=== PATIENT | male | born 1970 | race African-American/Black ===

== ENCOUNTER 2024-03-25 15:35 | Emergency (ER) | payer SELFPAY ==
[2024-03-25] VITALS (16 sets, daily range): BP systolic 143–170; BP diastolic 77–94; PULSE 61–80; RESP 13–28; TEMP 36.5–37.1; O2SAT 99–100
--- NOTE | ~2024-03-25 | CT_ITS ---
EXAMINATION: CT brain wo con DATE: 03/25/2024 16:43 INDICATION: Migraine. TECHNIQUE: Computed tomography (CT) of the head was performed without intravenous contrast. The mA wa s adjusted according to patient size. Iterative reconstruction technique was employed. The dose-lengt h product was 605.33 mGy-cm. COMPARISON: None FINDINGS: There is no intracranial hemorrhage, acute infarction, or abnormal intracranial mass lesion . The ventricles are normal in size. The orbits are normal. There is mucosal thickening in the parana tammy sinuses. The mastoid air cells are normal. IMPRESSION: 1. Normal brain. Reviewed, dictated and finalized at location A. LY CHAIN COORDINATOR IMPRESSION: 1. Normal brain.
--- NOTE | 2024-03-25 16:14 | ED_ITS ---
HPI - Recheck/Abnormal Lab/Rx General Chief Complaint: Recheck/Abnormal Lab/Rx Stated Complaint: htn Time Seen by Provider: 03/25/24 16:12 Source: patient Mode of arrival: ambulatory Limitations: no limitations History of Present Illness HPI narrative: This is a 54-year-old male who presents to the ED for chief complaint of left- sided headache over the past day or so. Reports he is at [facility] and they do not have any of his blood pressure medications. He is concerned that his blood pressure is high. States that this headache that is primarily on the left side is typical for his migraines. States he used to be on migraine medication but is unsure of what it is called. States that the light bothers him but he does not have any vision loss. Denies nausea, vomiting, abdominal pain, neck pain, neck stiffness, fevers, chills. Related Data Allergies Allergy/AdvReac Type Severity Reaction Status Date / Time No Known Allergies Allergy Verified 03/25/24 15:37 Review of Systems Review of Systems: All systems as dictated in HPI Exam Narrative: GENERAL: Well-appearing, well-nourished, and in no acute distress. HEAD: Normocephalic, atraumatic. EYES: PERRLA and EOMI. ENT: Nares clear, no rhinorrhea or epistaxis. Mucous membranes moist. Oropharynx without tonsillar hypertrophy exudate or other lesions. NECK: Supple. No adenopathy or masses. CHEST: No respiratory distress. Clear to auscultation. No wheezes rales or rhonchi HEART: Regular rate and rhythm. No murmur heard. Normal peripheral pulses. ABDOMEN: Soft, nontender, nondistended, normal active bowel sounds. MSK: Normal range of motion. No edema. SKIN: Warm, dry, no rash. NEURO: Alert and oriented x4. No focal deficits. PSYCH: Normal mood and affect. Course Vital Signs Vital signs: Vital Signs Temperature 97.7 F 03/25/24 15:45 Pulse Rate 74 03/25/24 15:45 Respiratory Rate 18 03/25/24 15:45 Blood Pressure 166/87 H 03/25/24 15:45 Pulse Oximetry 100 03/25/24 15:45 Oxygen Delivery Room Air 03/25/24 15:45 Temperature 97.7 F 03/25/24 15:45 Pulse Rate 65 03/25/24 18:00 Respiratory Rate 14 03/25/24 18:00 Blood Pressure 143/94 H 03/25/24 17:17 Pulse Oximetry 100 03/25/24 17:17 Oxygen Delivery Room Air 03/25/24 15:45 MDM - Recheck/Abnormal Lab/Rx MDM Narrative Medical decision making narrative: This is a 54-year-old male who presents to the ED for migraine headache. Vitals are showing mildly elevated blood pressure but otherwise normal. Exam remarkable for the above. No red flag signs for headache other than age. Patient was given headache cocktail ED with good relief. CT brain unremarkable. He is concerned about not having blood pressure medications at [facility]. Will prescribe low-dose amlodipine as I have no access to any previous medications and he is unsure with the doses are. Patient will be discharged in stable condition. Supportive measures discussed and return precautions given. Patient is understanding and agreeable with plan for discharge with PCP follow-up. Discharge Plan Discharge Clinical Impression: Migraine Patient Disposition: Home, Self-Care Condition: Stable Instructions: Antibiotic Form Additional Instructions: Exam and imaging today are reassuring. Please take amlodipine for blood pressure. Blood pressure needs to be managed by primary care long-term. The feel another headache, on, take Tylenol and ibuprofen immediately. If you have any new or worsening symptoms please return to the ER for further evaluation. Patient Language: Guamanian Prescriptions: New amlodipine 2.5 mg tablet 2.5 mg PO DAILY Qty: 30 0RF Follow-up/Referrals: Hugo Chinchilla MD [Primary Care Provider] - Time of Disposition: 17:34
[2024-03-25] MEDS: KETOROLAC 15 MG/ML VIAL (*BKC) IV PUSH (16:57)
[2024-03-25] MEDS: SODIUM CHLORIDE 0.9% IV 1,000 ML 999 ML IV CONT (16:57)
[2024-03-25] MEDS: PROCHLORPERAZINE EDISYLATE 10 MG/2 ML VIAL IV PUSH (16:58)
[2024-03-25] MEDS: diphenhydrAMINE HCl INJ 50 MG/ML VIAL 25 MG IV PUSH (16:58)
--- OUTSIDE RECORDS SUMMARY | 2024-03-29 01:55 | XMS_ITS ---
Author Organization [facility] Address [address] [place] [address] Care Team Providers Care Maintenance Millwright Name Role Phone PatsyYanira Primary Care Provider Allergies No Known Allergies REASON FOR VISIT on CRU Medications Medication SIG (Take, Route, Frequency, Duration) Notes Start Date End Date Status Sertraline HCl 25 MG 1 tablet Orally Onc e a day Active Topiramate 50 MG TAKE 1 TABLET BY MOUTH EVERY DAY Oral Once a day for 30 days on unit Active amLODIPine Besylate 10 MG 1 tablet Orall y Once a day for 30 days on unit Active Albuterol Sulfate HFA 108 (90 Base) MCG/ACT INHALE 2 PUFFS BY MOUTH EVERY 4 TO 6 HOURS NEEDED Inhalation for 17 Days Active Albuterol Sulfate HFA 108 (90 Base) MCG/ACT INHALE 2 PUFFS BY MOUTH EVERY 4 TO 6 HOURS NEEDED Inhalation for 17 Days Not-Taking Multivitamin - 1 tablet Orally Once a day Active Albuterol Sulfate HFA 108 (90 Base) MCG/ACT 2 puff as needed Inhalation every 4 hrs As needed Active Diclofenac Sodium 1 % as directed Externally 4 times daily As needed Active hydrOXYzine Pamoate 25 MG 1-2 capsules Orally every 4 hours As needed Active Chlorhexidine Gluconate 0.12 % 15 mL swish for 30 seconds, then spit. Do not swallow. Mouth/Throat Twice a day for 30 days on unit 03/28/2024 Active Symbicort 160-4.5 MCG/ACT PLEASE SEE ATT ACHED FOR DETAILED DIRECTIONS Inhalation daily for 30 days on unit Active Social History Tobacco Use: Social History Observation Description Date Details (start date - stop date) Current Smoker NA - NA Tobacco Control (Standard) Question Answer Notes Tobacco use: Current every day smoker Additional Findings: Tobacco user Heavy cigarett e smoker (20-39 cigs/day) Problems Problem Type SNOMED Code ICD Code Onset Dates Problem Status W/U Status Risk Notes Problem Tobacco user (751480780) Nicotine dependence, unspecified, uncomplicated (F17.200) Active confirmed Problem Hypertension (06365026) Hypertension (I10) Active confirmed Problem Asthma (240834607) Asthma (J45.909) Active confirmed Problem migraine (disorder) (04023889) Migraines (G43.909) Active confirmed Vital Signs Weight 162 lbs 03/28/2024 Height 69 in 03/28/2024 BMI 23.92 kg/m2 03/28/2024 Blood pressure systolic 162 mm Hg 03/28/20 24 Blood pressure diastolic 100 mm Hg 024 Heart Rate 72 /min 03/28/2024 Oximetry 98 % 03/28/2024 Respiratory Rate 16 /min 03/28/2024 Encounters Encounter Location Date Provider Diagnosis [place] [address] [facility] [place] [address] 03/28/2024 Yanira Garner Nicotine dependence, unspecified, uncomplicated F17.200 ; Adult general medical exam Z00.00 ; Hypertension I10 ; Dental caries K02.9 ; Low back pain at multiple sites M54.50 ; Asthma J45.909 and Migraines G43.909 Assessments Encounter Date Diagnosis (ICD Code) Assessment Notes Treatment Notes Treatment Clinical Notes Section Notes 03/28/2024 Nicotine dependence, unspecified, uncomplicated (ICD-10 - F17.200) 03/28/2024 Adult general medical exam (ICD-10 - Z00.00) 03/28/2024 Hypertension (ICD-10 - I10) 03/28/2024 Dental caries (ICD-10 - K02.9) 03/28/2024 Low back pain at multiple sites (ICD-10 - M54.50) 03/28/2024 Asthma (ICD-10 - J45.909) 03/28/2024 Migraines (ICD-10 - G43.909) 03/28/2024 Other Continue treatment as recommended by [facility] staff. Encouraged patient to obtain routine medical care with patient's own primary care provider or establish as a patient at [facility] if no current primary care provider. Plan Of Treatment Medication Medication Name Sig Start Date Stop Date Notes Topiramate 50 MG TAKE 1 TABLET BY BETO TH EVERY DAY Oral Once a day for 30 days on unit amLODIPine Besylate 10 MG 1 tablet Orall y Once a day for 30 days on unit Fluticasone Furoate-Vilanter ol 100-25 MCG/ACT 1 puff Inhalation Once a day for 30 days Chlorhexidine Gluconate 0.12 % 15 mL swi sh for 30 seconds, then spit. Do not swallow. Mouth/Throat Twice a day for 30 days 03/28/2024 on unit Symbicort 160-4.5 MCG/ACT PLEASE SEE ATT ACHED FOR DETAILED DIRECTIONS Inhalation daily for 30 days on unit Treatment Notes Assessment Notes Other Continue treatment as recommended by [place] staff. Encouraged patient to obtain routine medical care with patient's own primary care provider or establish as a patient at [facility] if no current primary care provider. Future Test Test Name Order Date QuantiFERON-TB Gold Plus 03/28/2024 Next Appt Details Follow Up: prn, Reason: Provider Name:Jacqueline Bowers , 03/29/2024 01:00:00 PM, [address] [facility], [place], [address], Progress Notes * Kev PORRAS ADOB:1970 (54 yo M)Acc No.[id number]:03/28/2024 Patient:?Kev PORRAS Provider:?Yanira Garner APRN :1970???Age:54 Y???Sex:Male Jarrett e:03/28/2024 Address:[facility] [place], [address] Check In:08:32 AM LAB SCIENTIST Subjective: * Chief Complaints: * ???on CRU * HPI: ???Summary:?Presents for physical as patient is admitted to Residential Unit at [place]. Arrived on: 03/24/24 Use of: Crack- cocaine Last use: 03/15/24 Via: smoke Previous treatment: various treatment (>15 years), for last 28 years.? Withdrawals symptoms: Denies Medical History: HTN, migraines PCP: Dr. Fournier in [place] Psych Provider: Denies Current medical concerns: HTN, low back pain reports having a spinal surgeon, reports hx of radiation bilaterally.? Denies SI/HI. Elevated BP today, reports going to [facility] over the weekend for HTN, was re-started on Amlodipine 2.5mg. Pr. reports previosuly taking Amlodipine along with another antihypertensive, unable to recall names.? WIll call[facility] in [place], [place] to obtain medication records. Unable to recall in external medication records.? Pt. requesting dental referral- advised that a referral is not necessary,pt. to schedule at D/C. Will send Rx for mouth rinse as pt. reports pain with brushing.? Pt. requesting to re-start the Symbicort- will stop FLuticasone. ???Preventative Health and Wellness follow-up:?Action Plans for Clinical Quality Measures:?Colorectal Cancer Screening:?Discussed need for colorectal cancer screening. Patient declined.,?HIV Screening:?Discussed need for HIV screening. Patient declined..?. ???CSSRS Interpretation and Follow Up Plan:?CSSRS Interpretation and Follow Up Plan. ?CSSRS Interpretation and Follow Up Plan?CSSRS Screen documented using SF?Yes,?Moderate or High risk requires selection of a follow up plan?CSSRS No/Low: intervention not needed at this time.?Depression Screening:?PHQ-9?Little interest or pleasure in doing things?Not at all,?Feeling down, depressed, or hopeless?Not at all,?Trouble falling or staying asleep, or sleeping too much?Several days,?Feeling tired or having little energy?Not at all,?Poor appetite or overeating?Not at all,?Feeling bad about yourself or that you are a failure, or have let yourself or your family down?Not at all,?Trouble concentrating on things, such as reading the newspaper or watching television?More than half the days,?Moving or speaking so slowly that other people could have noticed; or the opposite, being so fidgety or restless that you have been moving around a lot more than usual?Not at all,?Thoughts that you would be better off or of hurting yourself in some way?Not at all,?Total Score?3,?Interpretation?Minimal Depression.?Intervention?Depression Screening Findings?Negative.?Interim History:?Emergency room visit?No.?Was hospitalized?No.?Screening:?[place] Suicide Severity Rating Scale (LF)?Do you want to initiate with?Screener form,?1. Wish to be : Have you wished you were or wished you could go to sleep and not wake up??No,?2. Suicidal Thoughts: Have you actually had any thoughts of killing yourself??No,?6. Suicide Behaviour: Have you ever done anything,started to do anything, or prepared to end your life??No,?Interpretation:?Low Risk.? * ROS:?Psych ROS:?Constitutional?Denies.?Eyes?Denies.?Ears/Nose/Mouth/Throat?Denies.?Respirat ory?Denies.?Cardiova scular?Denies.?GI?Denies.??Denies.?Musculoskeletal?Denies.?Neurological?Denies . Integ umentary?Denies.?Hematological/Lymphatic?Denies.?Basic ROS:?Denies?Seizures.?Denies?Suicidal Thoughts.? * Medical History:? * Surgical History:?appendecto my testicular surgery * Hospitalization/Major Diagno stic Procedure:?asthma 2022 * Family History:?Father: dece ased.?Mother: .? Mom lung CA dad Had HTN and diabetes. * Social History:?Primary Social History:?Living Arrangement?Living Arrangement:?Independent Living,?Is this a supportive environment??No.?Alcohol Use?Alcohol Use Frequency:?Monthly or less.?Illicit Substance Usage?Illicit Substance Usage:?Yes,?Substance Used:?Crack last use 03/16.?Employment Status?Employment Status:?Unemployed.?Tobacco Use:?Tobacco Control (Standard)?Tobacco use:?Current every day smoker,?Additional Findings: Tobacco user?Heavy cigarette smoker (20-39 cigs/day).?Miscellaneous:?Method of learning?Preferred method of learning:?Discussion.? * Medications:?TakingamLODIPin e Besylate 2.5 MG Tablet 1 tablet Orally Once a day hydrOXYzine Pamoate 25 MG Capsule 1-2 capsules Orally every 4 hours As neededMultivitamin - Tablet 1 tablet Orally Once a day Albuterol Sulfate HFA 108 (90 Base) MCG/ACT Aerosol Solution 2 puff as needed Inhalation every 4 hrs As neededDiclofenac Sodium 1 % Gel as directed Externally 4 times daily As neededFluticasone Furoate-Vilanterol 100-25 MCG/ACT Aerosol Powder Breath Activated 1 puff Inhalation Once a day Sertraline HCl 25 MG Tablet 1 tablet Orally Once a day Topiramate 50 MG Tablet TAKE 1 TABLET BY MOUTH EVERY DAY Oral Symbicort 160-4.5 MCG/ACT Aerosol PLEASE SEE ATTACHED FOR DETAILED DIRECTIONS Inhalation Albuterol Sulfate HFA 108 (90 Base) MCG/ACT Aerosol Solution INHALE 2 PUFFS BY MOUTH EVERY 4 TO 6 HOURS NEEDED Inhalation Taking amLODIPine Besylate 2.5 MG Tablet 1 tablet Orally Once a day Taking hydrOXYzine Pamoate 25 MG Capsule 1-2 capsules Orally every 4 hours As neededTaking Multivitamin - Tablet 1 tablet Orally Once a day Taking Albuterol Sulfate HFA 108 (90 Base) MCG/ACT Aerosol Solution 2 puff as needed Inhalation every 4 hrs As neededTaking Diclofenac Sodium 1 % Gel as directed Externally 4 times daily As neededTaking Fluticasone Furoate-Vilanterol 100-25 MCG/ACT Aerosol Powder Breath Activated 1 puff Inhalation Once a day Taking Sertraline HCl 25 MG Tablet 1 tablet Orally Once a day Taking Topiramate 50 MG Tablet TAKE 1 TABLET BY MOUTH EVERY DAY Oral Taking Symbicort 160-4.5 MCG/ACT Aerosol PLEASE SEE ATTACHED FOR DETAILED DIRECTIONS Inhalation Taking Albuterol Sulfate HFA 108 (90 Base) MCG/ACT Aerosol Solution INHALE 2 PUFFS BY MOUTH EVERY 4 TO 6 HOURS NEEDED Inhalation Not-TakingAlbuterol Sulfate HFA 108 (90 Base) MCG/ACT Aerosol Solution INHALE 2 PUFFS BY MOUTH EVERY 4 TO 6 HOURS NEEDED Inhalation Not-Taking Albuterol Sulfate HFA 108 (90 Base) MCG/ACT Aerosol Solution INHALE 2 PUFFS BY MOUTH EVERY 4 TO 6 HOURS NEEDED Inhalation * Allergies:?N.K.D.A.no[Allerg ies Verified] Objective: * Vitals:?Initials: hp, Wt:162 , Ht:69, BMI:23.92, BP:162/100, 2nd BP read:162/100, HR:72, Oxygen sat %:98, RR:16, Pain scale:3. * Examination: ???Activity Permissions and Medication Self Administration: ?Activity Level & Medication Self-Administration Permissions?.?. ???General Examination: ?GENERAL APPEARANCE:?alert, in no acute distress.?HEAD:?normocephalic, atraumatic.?EYES:?BOTH EYES, sclera anicteric, pupils equal, round, reactive to light and accommodation , extraocular movement intact (EOMI).?EARS?BOTH EARS, normal.?NOSE:?nares patent.?ORAL CAVITY:?mucosa moist, missing teeth, carious teeth.?THROAT:?pharynx normal.?NECK/THYROID:?neck supple , no thyromegaly.?SKIN:?warm and dry, no rashes, no suspicious lesions.?HEART:?regular rate and rhythm, S1, S2 normal, no S3, S4, no murmurs, rubs, gallops.?LUNGS:?respirations regular and easy, clear to auscultation bilaterally, no wheezes, rales, rhonchi, clear anteriorly and posteriorly, good air movement.?ABDOMEN:?bowel sounds present, soft, nontender, nondistended, no masses palpable, no organomegaly .?EXTREMITIES:?no edema.?PERIPHERAL PULSES:?2+ radial.?NEUROLOGIC:?nonfocal, gait normal.?PSYCH:?appropriate affect.? Assessment: * Assessment: 1.?Nicotine dependence, unsp ecified, uncomplicated - F17.200???2.?Adult general medical exam - Z00.00 (Primary)???3.?Hypertension - I10???4.?Dental caries - K02.9???5.?Low back pain at multiple sites - M54.50? ?6.?Asthma - J45.909???7.?Migraines - G43.909??? Plan: * Treatment: 2.?Dental caries? Start Chlorhexidine Gluconate Solution, 0.12 %, 15 mL swish for 30 seconds, then spit. Do not swallow., Mouth/Throat, Twice a day, 30 days, 900, Refills 1, Notes to Pharmacist: on unit.?? 3.?Asthma? Refill Symbicort Aerosol, 160-4.5 MCG/ACT, PLEASE SEE ATTACHED FOR DETAILED DIRECTIONS, Inhalation, daily, 30 days, 1, Refills 0, Notes to Pharmacist: on unit;?Stop Fluticasone Furoate-Vilanterol Aerosol Powder Breath Activated, 100-25 MCG/ACT, 1 puff, Inhalation, Once a day, 30 days, 1.?? 4.?Migraines? Refill Topiramate Tablet, 50 MG, TAKE 1 TABLET BY MOUTH EVERY DAY, Oral, Once a day, 30 days, 30, Refills 0, Notes to Pharmacist: on unit.?? 5.?Others? Refill amLODIPine Besylate Tablet, 10 MG, 1 tablet, Orally, Once a day, 30 days, 30 Tablet, Refills 0, Notes to Pharmacist: on unit.?? Notes:Continue treatment as recommended by [place] staff.Encouraged patient to obtain routine medical care with patient's own primary care provider or establish as a patient at [facility] if no current primary care provider.?? * Recommended Wellness and Pre vention Guidelines: * ?Status ?Alert ?Last Done ?Next Due ?Action Taken ?NONCOMPLIANT ?Alcohol use screening ?- ? ?- ?NONCOMPLIANT ?Body Mass Index ?- ?03/28/2024 ?- ?NONCOMPLIANT ?Cholesterol screen (genl pop) ?- ?1 05/29/2023 ?- ?NONCOMPLIANT ?Colorectal cancer screening ?- ? ?- ?NONCOMPLIANT ?Depression screening ?- ?03/28/2024 ?- ?NONCOMPLIANT ?HIV screening ?- ?03/28/2024 ?- ?NONCOMPLIANT ?Influenza vaccine (over 50) ?- ? ?- ?NONCOMPLIANT ?Smoking status ?- ?03/28/2024 ?- * Procedure Codes:?33521 BEHAV CHNG SMOKING 3-10 MIN * Preventive Medicine:? ??Counseling:?SMOKING:?Patient counselled on the dangers of tobacco use and urged to quit.?..? * Follow Up:?prn * * SCIENTIST Sign off status: Completed true * Provider:?Yanira Garner APRN Date:?1 05/29/2023 Generated for Flaco da silva/Dominik/eTransmitting on:?03/29/2024 01:54 AM LAB SCIENTIST History and Physical Notes * HPI (History of Present Illness) Category Sub-Category Detail Notes Category Not es Interim History Was hospitalized No Emergency room visit No Depression Screening PHQ-9 Little inte rest or pleasure in doing things: Not at all Feeling down, depressed, or hopeless: No t at all Trouble falling or staying asleep, or sl eeping too much: Several days Feeling tired or having little energy: N ot at all Poor appetite or overeating: Not at all Feeling bad about yourself o r that you are a failure, or have let yourself or your family down: Not at all Trouble concentrating on thi ngs, such as reading the newspaper or watching television: More than half the days Moving or speaking so slowly that other people could have noticed; or the opposite, being so fidgety or restless that you have been moving around a lot more than usual: Not at all Thoughts that you would be b damián off or of hurting yourself in some way: Not at all Total Score: 3 Interpretation: Minimal Depression Intervention Depression Screening Findings: N egative Summary Presents for physical as patient is admitted to Residential Unit at [place]. Arrived on: 03/24/24 Use of: Crack- cocaine Last use: 03/15/24 Via: smoke Previous treatment: various treatment (>15 years), for last 28 years. Withdrawals symptoms: Denies Medical History: HTN, migraines PCP: Dr. Fournier in [place] Psych Provider: Denies Current medical concerns: HTN, low back pain reports having a spinal surgeon, reports hx of radiation bilaterally. Denies SI/HI. Elevated BP today, reports going to [facility] over the weekend for HTN, was re-started on Amlodipine 2.5mg. Pr. reports previosuly taking Amlodipine along with another antihypertensive, unable to recall names. WIll call [facility] in [place], [place] to obtain medication records. Unable to recall in external medication records. Pt. requesting dental referral- advised that a referral is not necessary,pt. to schedule at D/C. Will send Rx for mouth rinse as pt. reports pain with brushing. Pt. requesting to re-start the Symbicort- will stop FLuticasone Screening [place] Suicide Severity Rating Scale (LF) Do you want to initiate with: Screener form ?1. Wish to be : Have yo u wished you were or wished you could go to sleep and not wake up?: No ?2. Suicidal Thoughts: Have you actually had any thoughts of killing yourself?: No ?6. Suicide Behaviour: Have you ever done anything,started to do anything, or prepared to end your life?: No ?Interpretation:: Low Risk CSSRS Interpretation and Follow Up Plan CSSRS Interpretation and Follow Up Plan CSSRS Screen documented using SF: Yes Moderate or High risk requir es selection of a follow up plan: CSSRS No/Low: intervention not needed at this time Preventative Health and Wellness follow-up Action Plans for Clinical Quality Measures: Colorectal Cancer Screening:: Discussed need for colorectal cancer screening. Patient declined. . HIV Screening:: Discussed need for HIV s creening. Patient declined. Examination Category Sub-Category Detail Notes Category Not es General Examination GENERAL APPEARANCE: alert, in no a cute distress HEAD: normocephalic, atrau matic EYES: BOTH EYES, sclera an icteric, pupils equal, round, reactive to light and accommodation , extraocular movement intact (EOMI) EARS BOTH EARS, normal NOSE: nares patent THROAT: pharynx normal NECK/THYROID: neck supple , no thy romegaly HEART: regular rate and rhy thm, S1, S2 normal, no S3, S4, no murmurs, rubs, gallops LUNGS: respirations regular and easy, clear to auscultation bilaterally, no wheezes, rales, rhonchi, clear anteriorly and posteriorly, good air movement ABDOMEN: bowel sounds present , soft, nontender, nondistended, no masses palpable, no organomegaly NEUROLOGIC: nonfocal, gait niki l SKIN: warm and dry, no hero hes, no suspicious lesions EXTREMITIES: no edema PERIPHERAL PULSES: 2+ radial PSYCH: appropriate affect ORAL CAVITY: mucosa moist, missin g teeth, carious teeth Activity Permissions and Medication Self Administration Activity Level & Medication Self-Administration Permissions Activity Level Permitted:: The patient/client may fully take part in physical fitness programming including aerobic, muscular strength, and flexibility training without restriction. . Medication Self-Administrati on Permissions:: Medications may be self- administered by the patient/client under the supervision of approved staff or administered by nursing staff.
--- OUTSIDE RECORDS SUMMARY | 2024-03-29 01:55 | XMS_ITS | Patient Health Record ---
Author Organization [facility] Address [address] [place] [address] Care Team Providers Care Feed In Worker Name Role Phone Yanira Garner Primary Care Provider Jacqueline Bowers Unavailable [phone] Allergies No Known Allergies Reason For Referral No Information Medications Medication SIG (Take, Route, Frequency, Duration) Notes Start Date End Date Status Multivitamin - 1 tablet Orally Once a day Active Albuterol Sulfate HFA 108 (90 Base) MCG/ACT 2 puff as needed Inhalation every 4 hrs As needed Active Diclofenac Sodium 1 % as directed Externally 4 times daily As needed Active Sertraline HCl 25 MG 1 tablet Orally [...] HOURS NEEDED Inhalation for 17 Days Active Chlorhexidine Gluconate 0.12 % 15 mL swish for 30 seconds, then spit. Do not swallow. Mouth/Throat Twice a day for 30 days on unit 03/28/2024 Active Albuterol Sulfate HFA 108 (90 Base) MCG/ACT INHALE 2 PUFFS BY MOUTH EVERY 4 TO 6 HOURS NEEDED Inhalation for 17 Days Not-Taking Symbicort 160-4.5 MCG/ACT PLEASE SEE ATT ACHED FOR DETAILED DIRECTIONS Inhalation daily for 30 days on unit Active hydrOXYzine Pamoate 25 MG 1-2 capsules Orally every 4 hours As needed Active Social History Tobacco Use: Social History Observation Description Date Details (start date - stop date) Current Smoker NA - NA Tobacco Control (Standard) Question Answer Notes Tobacco use: Current every day smoker Additional Findings: Tobacco user Heavy cigarett e smoker (20-39 cigs/day) Problems Problem Type SNOMED Code ICD Code Onset Dates Problem Status W/U Status Risk Notes Problem Tobacco user (484435982) Nicotine dependence, unspecified, uncomplicated (F17.200) Active confirmed Problem Hypertension (41122658) Hypertension (I10) Active confirmed Problem Asthma (806535690) Asthma (J45.909) Active confirmed Problem migraine (disorder) (80248578) Migraines (G43.909) Active confirmed Vital Signs Heart Rate 72 /min 03/28/2024 Respiratory Rate 16 /min 03/28/2024 Oximetry 98 % 03/28/2024 Blood pressure diastolic 100 mm Hg 03/28/2024 Height 69 in 03/28/2024 Blood pressure systolic 162 mm Hg 03/28/2024 Weight 162 lbs 03/28/2024 BMI 23.92 kg/m2 03/28/2024 Encounters Encounter Location Date Provider Diagnosis [address] [place] [address] 03/28/2024 Yanira Garner Nicotine dependence, unspecified, uncomplicated [...] 03/28/2024 Other Continue treatment as recommended by [facility] staff. Encouraged patient to obtain routine medical care with patient's own primary care provider or establish as a patient at [facility] if no current primary care provider. Plan Of Treatment Future Test Test Name Order Date QuantiFERON-TB Gold Plus 03/28/2024 Next Appt Details Provider Name:Jacqueline Bowers , 03/29/2024 01:00:00 PM, [address] [facility], [place], [address], Medical (General) History Surgical History Surgery Date(Month/Year) appendectomy testicular surgery Hospitalization History Reason Date(Month/Year) asthma 2022
== END 2024-03-25 19:01 | disposition home or self-care (01) ==
PROVIDERS: Emergency Provider Physician Assistant; PCP Internal Medicine
DX: G43.909 Migraine, unspecified, not intractable, without status migrainosus (principal); I10 Essential (primary) hypertension
CPT/HCPCS: 70450; 96361; 96374; 96375; 99284; J0780; J1200; J1885; J7030

== ENCOUNTER 2024-04-08 09:23 | Emergency (ER) | payer MEDICAID, SELFPAY ==
[2024-04-08 09:57] VITALS: BP 143/89; PULSE 78; RESP 20; TEMP 37.2; O2SAT 100
--- NOTE | 2024-04-08 10:04 | ED.DENTAL ---
HPI - Dental/Oral General Chief complaint: Dental/Oral Stated complaint: Tooth abscess, sore throat Time Seen by Provider: 04/08/24 10:04 Source: patient Mode of arrival: ambulatory Limitations: no limitations History of Present Illness HPI Narrative: This is a 54-year-old male who presents to the ED for chief complaint of left-sided dental pain over the past several days. Reports it is worse on the left lower side. Feels that he may need antibiotics for this because he has had dental infections in the past. He is currently at the [facility] [place] has not been able to see dentist. Patient reports that he has chronic asthma and has been having some increased wheezing. He has been taking his albuterol and Symbicort but is requesting a steroid pack due to his tightness. Denies fevers, chills, shortness of breath, nausea, vomiting, trismus, drooling. Related Data Allergies Allergy/AdvReac Type Severity Reaction Status Date / Time No Known Allergies Allergy Verified 04/08/24 10:00 Review of Systems Review of Systems: All systems as dictated in HPI Exam Narrative: GENERAL: Well-appearing, well-nourished, and in no acute distress. HEAD: Normocephalic, atraumatic. EYES: PERRLA and EOMI. ENT: Poor dentition throughout with multiple missing teeth. Nares clear, no rhinorrhea or epistaxis. Mucous membranes moist. Oropharynx without tonsillar hypertrophy exudate or other lesions. NECK: Supple. No adenopathy or masses. CHEST: No respiratory distress. Clear to auscultation. No wheezes rales or rhonchi HEART: Regular rate and rhythm. No murmur heard. Normal peripheral pulses. ABDOMEN: Soft, nontender, nondistended, normal active bowel sounds. MSK: Normal range of motion. No edema. SKIN: Warm, dry, no rash. NEURO: Alert and oriented x4. No focal deficits. PSYCH: Normal mood and affect. Course Vital Signs Vital signs: Vital Signs Temperature 98.9 F 04/08/24 09:57 Pulse Rate 78 04/08/24 09:57 Respiratory Rate 20 04/08/24 09:57 Blood Pressure 143/89 H 04/08/24 09:57 Pulse Oximetry 100 04/08/24 09:57 Oxygen Delivery Room Air 04/08/24 09:57 Temperature 98.9 F 04/08/24 09:57 Pulse Rate 78 04/08/24 09:57 Respiratory Rate 20 04/08/24 09:57 Blood Pressure 143/89 H 04/08/24 09:57 Pulse Oximetry 100 04/08/24 09:57 Oxygen Delivery Room Air 04/08/24 09:57 MDM - Dental/Oral MDM Narrative Medical decision making narrative: This is a 54-year-old male who is presenting for dental pain and increased wheezing with asthma. Vitals are normal. Respiratory exam is intact. He does have mild wheezes. Dentition is diffusely poor. Multiple caries and missing teeth noted. No trismus or drooling or signs of deep space infection. Patient will be given Rx for Augmentin for possible dental infection. Medrol Dosepak given for tightness with wheezing. He already has prescriptions for Symbicort And albuterol. Pt will be discharged in stable condition. Return precautions given and supportive measures discussed. Pt is understanding and agreeable with plan for discharge and follow-up with PCP. Discharge Plan Discharge Clinical Impression: Dental caries Patient Disposition: Home, Self-Care Condition: Stable Instructions: Antibiotic Form Additional Instructions: Your exam today shows dental decay. This needs to be treated definitively by dentist. Please take antibiotics as prescribed for this. Use regular Tylenol and ibuprofen for pain control. Take Medrol Dosepak for increased wheezing with asthma. If you have any new or worsening symptoms please return to the ER for further evaluation. Patient Language: Turkish Prescriptions: New methylprednisolone [Medrol (Sylvester)] 4 mg tablets,dose pack See Rx Instructions .ROUTE .COMPLEX Qty: 21 0RF Rx Instructions: for 6 days amoxicillin-pot clavulanate 875-125 mg tablet 1 tablet PO Q12H Qty: 14 0RF No Action amlodipine 2.5 mg tablet 2.5 mg PO DAILY Qty: 30 0RF amlodipine 2.5 mg tablet 2.5 mg PO DAILY Qty: 10 0RF Follow-up/Referrals: Hugo Chinchilla MD [Primary Care Provider] - Stand Alone Forms: Work/School Release IP Time of Disposition: 10:07
== END 2024-04-08 10:17 | disposition home or self-care (01) ==
LOC: ANHED 10:12
PROVIDERS: Emergency Provider Physician Assistant; PCP Internal Medicine
DX: K02.9 Dental caries, unspecified (principal); J45.909 Unspecified asthma, uncomplicated
CPT/HCPCS: 99283

== ENCOUNTER 2024-05-06 09:44 | Emergency (ER) | payer MEDICAID, SELFPAY ==
--- NOTE | ~2024-05-06 | XR_ITS ---
EXAMINATION: XR chest 2V DATE: 05/06/2024 10:42 INDICATION: Shortness of breath and cough. TECHNIQUE: Frontal and lateral views of the chest were obtained. COMPARISON: None. FINDINGS: A calcified right lung nodule is consistent with old granulomatous disease. There is no pne umonia, pleural effusion, or pneumothorax. The heart size is normal. IMPRESSION: 1. No acute cardiopulmonary disease. Reviewed, dictated and finalized at location B. BUSINESS PARTNER CONSULTANT
[2024-05-06 09:51] VITALS: BP 148/79; PULSE 102; RESP 30; TEMP 38.7; O2SAT 100
--- NOTE | 2024-05-06 09:56 | ECG_ITS ---
Test Date: 2024-05-06 09:58:52 Measurements Intervals [place] Rate: 112 P: 74 [place]: 129 QRS: 57 QRSD: 90 T: 60 QT: 306 QTc: 419 Interpretive Statements SINUS TACHYCARDIA POSSIBLE LEFT ATRIAL ENLARGEMENT [-0.1mV P-WAVE IN V1/V2] NONSPECIFIC T-WAVE ABNORMALITY ABNORMAL RHYTHM ECG No previous ECG available for comparison Electronically Signed On 05-06-2024 11:58:20 ORTHOPEDICS TEACHER by Melanie Watson
[2024-05-06 10:09] LABS: Basophils Absolute Auto 0.1 K/mm3 (0.0-0.1); Basophils Percent Auto 0.7 % (0.2-1.2); Eosinophils Absolute Auto 0.1 K/mm3 (0-0.3); Eosinophils Percent Auto 0.8 % (0-4.4); Hematocrit 43.3 % (42.0-52.0); Hemoglobin 13.9 g/dL (14.0-18.0); Immature Granulocyte Absolute 0.36 K/mm3 (0.00-0.031); Immature Granulocyte Percent A 3.4 % (0-0.5); Immature Platelet Fraction Pct 3.7 % (0.9-11.2); Lymphocytes Percent Auto 12.2 % (18.3-44.2); Mean Corpuscular HGB Conc 32.1 g/dl (32-36); Mean Corpuscular Hemoglobin 27.7 pg (26-34); Mean Corpuscular Volume 86.3 fl (80-100); Mean Platelet Volume 11.3 fl (7.4-10.4); Monocytes Absolute Auto 1.9 K/mm3 (0.1-0.6); Monocytes Percent Auto 17.6 % (2.6-8.5); Neutrophils Percent Auto 65.3 % (45.5-73.1); Platelet Count Result 171 k/mm3 (150-375); Red Blood Count 5.02 M/mm3 (4.6-6.20); White Blood Count 10.7 K/mm3 (4.5-10.0)
[2024-05-06] MEDS: KETOROLAC 30 MG/ML VIAL (*BKC) IV PUSH (11:15)
[2024-05-06] MEDS: SODIUM CHLORIDE 0.9% IV 1,000 ML 999 ML IV CONT (11:15)
[2024-05-06 11:16] VITALS: BP 133/77; PULSE 94; RESP 19; O2SAT 97
[2024-05-06 12:05] LABS: Influenza A QL RT-PCR Positive (Negative); Influenza B QL RT-PCR Negative (Negative); RSV RNA, RT-PCR Negative (Negative); SARS-CoV-2 RNA PCR Negative (Negative)
--- NOTE | 2024-05-06 12:15 | ED.GENADULT ---
HPI - General Adult General Chief complaint: Shortness of Breath/Dyspnea Stated complaint: SOB Time Seen by Provider: 05/06/24 09:48 Source: patient Mode of arrival: EMS Limitations: no limitations History of Present Illness HPI narrative: 54-year-old was brought in by EMS from [facility] with the complaints of body aches, fever since last night has with EMS patient was exposed to COVID yesterday. He denies any nausea, vomiting or abdominal pain. Onset (ago): day(s) (1) Severity: moderate Related Data Allergies Allergy/AdvReac Type Severity Reaction Status Date / Time No Known Allergies Allergy Verified 05/06/24 10:01 Review of Systems Review of Systems: All systems reviewed & are unremarkable except as noted in HPI and below Constitutional: Constitutional: Reports no additional constitutional complaints Eyes: Eyes: Reports no additional eye complaints ENT: Reports system reviewed and no additional complaints, except as documented Cardiovascular: Cardiovascular: Reports no additional cardiovascular complaints Respiratory: Respiratory: Reports as per HPI Musculoskeletal: Musculoskeletal: Reports no additional musculoskeletal complaints Exam Narrative: GENERAL: Well-appearing, well-nourished, and in no acute distress. HEAD: Normocephalic, atraumatic. EYES: PERRLA and EOMI. ENT: Nares clear, no rhinorrhea or epistaxis. Mucous membranes moist. NECK: Supple. CHEST: Clear to auscultation. No respiratory distress. HEART: Regular rate and rhythm. No murmur heard. Normal peripheral pulses. ABDOMEN: Soft, nontender, nondistended, normal active bowel sounds. EXTREMITIES: Normal range of motion. No edema. SKIN: Warm, dry, no rash. NEURO: No focal deficits. Alert and oriented x3. PSYCH: Normal mood and affect. Course Course Emergency Course: Patient was given IV fluids, is lying comfortably on the bed informed him about his lab work and x-ray findings. Advised him to take medication as prescribed. Tylenol ibuprofen for body aches and fever. Vital Signs Vital signs: Vital Signs Temperature 38.7 C H 05/06/24 09:51 Pulse Rate 102 H 05/06/24 09:51 Respiratory Rate 30 H 05/06/24 09:51 Blood Pressure 148/79 H 05/06/24 09:51 Pulse Oximetry 100 05/06/24 09:51 Oxygen Delivery Room Air 05/06/24 09:51 Temperature 38.7 C H 05/06/24 09:51 Pulse Rate 94 05/06/24 11:16 Respiratory Rate 19 05/06/24 11:16 Blood Pressure 133/77 05/06/24 11:16 Pulse Oximetry 97 05/06/24 11:16 Oxygen Delivery Room Air 05/06/24 09:57 Medical Decision Making Differential Diagnosis Differential Diagnosis: Pneumonia, influenza Medical Records Medical records reviewed: Yes I reviewed the external patient's medical records. Vital Signs Vital Signs: Vital Signs Temperature 38.7 C H 05/06/24 09:51 Pulse Rate 102 H 05/06/24 09:51 Respiratory Rate 30 H 05/06/24 09:51 Blood Pressure 148/79 H 05/06/24 09:51 Pulse Oximetry 100 05/06/24 09:51 Oxygen Delivery Room Air 05/06/24 09:51 Temperature 38.7 C H 05/06/24 09:51 Pulse Rate 94 05/06/24 11:16 Respiratory Rate 19 05/06/24 11:16 Blood Pressure 133/77 05/06/24 11:16 Pulse Oximetry 97 05/06/24 11:16 Oxygen Delivery Room Air 05/06/24 09:57 Lab Data 05/06/24 10:02 05/06/24 10:02 Labs: Lab Results 05/06/24 05/06/24 Range/Units 10:02 11:21 WBC 10.7 H (4.5-10.0) K/mm3 RBC 5.02 (4.6-6.20) M/mm3 Hgb 13.9 L (14.0-18.0) g/dL Hct 43.3 (42.0-52.0) % MCV 86.3 (80-100) fl MCH 27.7 (26-34) pg MCHC 32.1 (32-36) g/dl RDW 14.0 (11.5-14.5) % Plt Count 171 (150-375) k/mm3 MPV 11.3 H (7.4-10.4) fl Immature Gran % (Auto) 3.4 H (0-0.5) % Neut % (Auto) 65.3 (45.5-73.1) % Lymph % (Auto) 12.2 L (18.3-44.2) % Pine % (Auto) 17.6 H (2.6-8.5) % Eos % (Auto) 0.8 (0-4.4) % Baso % (Auto) 0.7 (0.2-1.2) % Lymph # (Auto) 1.30 (0.9-3.2) K/mm3 Pine # (Auto) 1.9 H (0.1-0.6) K/mm3 Eos # (Auto) 0.1 (0-0.3) K/mm3 Baso # (Auto) 0.1 (0.0-0.1) K/mm3 Abs Immat Gran (auto) 0.36 H (0.00-0.031) K/mm3 Absolute Neuts (auto) 7.0 H (1.3-6.7) K/mm3 Absolute Nucleated RBC 0.000 (0.0-0.012) K/mm3 Nucleated RBC % 0.0 (0.0-0.2) % % Immature Plt Fraction 3.7 (0.9-11.2) % Sodium Pending Potassium Pending Chloride Pending Carbon Dioxide Pending Anion Gap Pending BUN Pending Creatinine Pending Estim Creat Clear Calc Pending Estimated GFR Pending Glucose Pending Calcium Pending Total Bilirubin Pending AST Pending ALT Pending Alkaline Phosphatase Pending Total Protein Pending Albumin Pending Influenza A (RT-PCR) Positive A (Negative) Influenza B (RT-PCR) Negative (Negative) RSV (RT-PCR) Negative (Negative) SARS-CoV-2 RNA (RT-PCR) Negative (Negative) ECG Data EKG #1: ECG completion date: 05/06/24 ECG completion time: 09:58 EKG Interpretation: tachycardia (112), no ST changes and NL axis Discharge Plan Discharge Clinical Impression: Influenza A Patient Disposition: Home, Self-Care Condition: Stable Instructions: Influenza (DC) Patient Language: Citizen Of [place] Prescriptions: New oseltamivir [Tamiflu] 75 mg capsule 75 mg PO Q12H 5 Days Qty: 10 0RF No Action amlodipine 2.5 mg tablet 2.5 mg PO DAILY Qty: 30 0RF amlodipine 2.5 mg tablet 2.5 mg PO DAILY Qty: 10 0RF methylprednisolone [Medrol (Sylvester)] 4 mg tablets,dose pack See Rx Instructions .ROUTE .COMPLEX Qty: 21 0RF Rx Instructions: for 6 days amoxicillin-pot clavulanate 875-125 mg tablet 1 tablet PO Q12H Qty: 14 0RF Follow-up/Referrals: Ham Hodge MD [Physician] - UNKNOWN,DOCTOR [Primary Care Provider] - Time of Disposition: 12:27
--- NOTE | 2024-05-06 12:52 | PC.NURSE ---
Walked to the bathroom with 1 assist.
== END 2024-05-06 13:10 | disposition home or self-care (01) ==
PROVIDERS: Emergency Provider Family Medicine
DX: J10.1 Influenza due to other identified influenza virus with other respiratory manifestations (principal); Z20.822 Contact with and (suspected) exposure to COVID-19; R94.31 Abnormal electrocardiogram [ECG] [EKG]; R00.0 Tachycardia, unspecified
CPT/HCPCS: 36415; 71046; 85025; 85055; 87637; 93005; 96361; 96374; 99284; J1885; J7030